=== PATIENT | male | born 1990 | race Caucasian/White ===

== ENCOUNTER 2021-11-21 22:05 | Emergency (ER) | payer OTHER ==
[~2021-11-21] VITALS: Ht 190.5 cm; Wt 88.9 kg
== END 2021-11-21 22:52 | disposition home or self-care (01) ==
LOC: ED 22:05
DX: L50.9 Urticaria, unspecified (principal); Z88.0 Allergy status to penicillin
CPT/HCPCS: 99283; Q0163